=== PATIENT | male | born 1985 | race Two or more races ===

== ENCOUNTER 2017-05-02 00:34 | Emergency (ER) | payer SELFPAY ==
[2017-05-02 00:41] VITALS: TEMP 97.3; O2SAT 97
--- NOTE | 2017-05-02 00:57 | C.PDOC ---
History Of Present Illness Patient brought to ER via EMS after he was found inebriated and drinking in public. is at bedside, states she is willing to take patient home. Patient has no signs of obvious injury and has no complaints at this time. Time Seen by Provider: 05/02/17 00:56 Chief Complaint (Nursing): Substance Abuse History Per: Patient History/Exam Limitations: no limitations Onset/Duration Of Symptoms: Hrs Current Symptoms Are (Timing): Still Present Suicide/Self Injury Attempted (Context): None Modifying Factor(s): Alcohol Severity: None Pain Scale Rating Of: 0 Associated Symptoms: denies: Depression, Suicidal Thoughts, Suicidal Plan Involuntary Hold By: None Recent travel outside of the [place]: No Additional History Per: EMS Past Medical History Reviewed: Historical Data, Nursing Documentation, Vital Signs Vital Signs: Last Vital Signs Temp 97.3 F L 05/02/17 01:00 Pulse 90 05/02/17 01:00 Resp 16 05/02/17 01:00 BP 145/71 05/02/17 01:00 Pulse Ox 97 05/02/17 01:04 - Medical History PMH: No Chronic Diseases Family History: States: No Known Family Hx - Social History Hx Alcohol Use: Yes Hx Substance Use: No - Immunization History Hx Tetanus Toxoid Vaccination: No Hx Influenza Vaccination: No Hx Pneumococcal Vaccination: No Review Of Systems Constitutional: Negative for: Fever, Chills Gastrointestinal: Negative for: Nausea, Vomiting, Diarrhea Physical Exam - Physical Exam Appears: Non-toxic, No Acute Distress, Other (ETOH on breath, Awake, Alert, no signs of trauma/injury) Skin: Warm, Dry Head: Normacephalic Oral Mucosa: Moist Chest: Symmetrical, No Tenderness Cardiovascular: Rhythm Regular Respiratory: No Rales, No Rhonchi, No Wheezing Gastrointestinal/Abdominal: Soft, No Tenderness Neurological/Psych: Oriented x3 ED Course And Treatment O2 Sat by Pulse Oximetry: 97 (Room air) Pulse Ox Interpretation: Normal Progress Note: Patient discharged home under 's custody. Disposition Counseled Patient/Family Regarding: Studies Performed, Diagnosis, Need For Followup - Disposition Referrals: [facility] [Outside] [facility] [Outside] Disposition: HOME/ ROUTINE Disposition Time: 00:57 Condition: FAIR Instructions: Alcohol Intoxication (DC) Forms: [employer] (Chinese) - Clinical Impression Clinical Impression: Alcohol intoxication - Scribe Statement The provider has reviewed the documentation as recorded by the Scribe Carl Mendez All medical record entries made by the Scribe were at my direction and personally dictated by me. I have reviewed the chart and agree that the record accurately reflects my personal performance of the history, physical exam, medical decision making, and the department course for this patient. I have also personally directed, reviewed, and agree with the discharge instructions and disposition.
[2017-05-02 01:33] VITALS: BP 145/71; PULSE 90; RESP 16
== END 2017-05-02 01:05 | disposition home or self-care (01) ==
LOC: C.ER 00:34
DX: F10.129 Alcohol abuse with intoxication, unspecified (principal)